=== PATIENT | male | born 1965 | race Caucasian/White ===

== ENCOUNTER 2021-05-12 18:48 | Inpatient (IN) | payer OTHER ==
[~2021-05-12] VITALS: Ht 182.9 cm; Wt 147.8 kg
[2021-05-12] MEDS ORDERED: fentaNYL 100 MCG/2 ML INJECTION (J3010) IV ONE ×2 (19:10→20:30)
[2021-05-12] MEDS ORDERED: BOOSTRIX/ADACEL VACCINE (DIPHTH/PERTUSS/ACELL/TETANUS) 0.5ML SYR IM ONE (19:10)
[2021-05-12] MEDS ORDERED: ceFAZolin SOD 2 GM in IV 1 EA IV ONE (19:10)
[2021-05-12 19:33] LABS: BASO # 0.1 10^3/uL (0.0-0.2); BASO % 0.5 % (0.0-1.0); EOS # 0.3 10^3/uL (0.0-0.5); EOS % 2.4 % (0.0-3.0); HEMATOCRIT 45.2 % (42.0-52.0); HEMOGLOBIN 15.6 g/dl (13.5-17.5); LYMPH # 2.6 10^3/uL (1.5-5.0); MEAN CORPUSCULAR HGB CONC 34.5 g/dl (32.0-36.5); MEAN CORPUSCULAR VOLUME 89.7 fl (80.0-96.0); MONO # 1.1 10^3/uL (0.0-0.8); MONO % 9.3 % (2.0-8.0); NEUTROPHILS # 7.6 10^3/uL (1.5-8.5); NEUTROPHILS % 65.4 % (36.0-66.0); PLATELET COUNT, AUTOMATED 265 10^3/uL (150-450); RED BLOOD COUNT 5.04 10^6/uL (4.30-6.10); WHITE BLOOD COUNT 11.6 10^3/uL (4.0-10.0)
[2021-05-12 19:55] LABS: BLOOD UREA NITROGEN 23 MG/DL (7-18); CALCIUM LEVEL 9.3 MG/DL (8.5-10.1); CARBON DIOXIDE LEVEL 27 MEQ/L (21-32); CHLORIDE LEVEL 107 MEQ/L (98-107); CREATININE FOR GFR 1.49 MG/DL (0.70-1.30); GLOMERULAR FILTRATION RATE 51.8 (>56); GLUCOSE, FASTING 167 MG/DL (70-100); POTASSIUM SERUM 4.3 MEQ/L (3.5-5.1); SODIUM LEVEL 141 MEQ/L (136-145)
[2021-05-12] MEDS: BUDESONIDE 180MCG INHALER (PULMICORT FLEXHALER) INH SCH (20:00)
[2021-05-12 20:08] LABS: RSV AMPLIFICATION NEGATIVE (NEGATIVE)
--- NOTE | 2021-05-12 20:24 | REP ---
INDICATION: trauma COMPARISON: None. TECHNIQUE: Two views of the left elbow FINDINGS: Evaluation is limited by positioning. Subtle injury cannot be excluded. IMPRESSION: Limited examination. Subtle injury cannot be excluded. <Electronically signed by Vic Calzada > 05/12/212020
--- NOTE | 2021-05-12 20:24 | REP ---
INDICATION: trauma COMPARISON: None. TECHNIQUE: AP and lateral views of the left forearm FINDINGS: Transverse posteriorly angulated fractures through the distal radial and ulnar metadiaphysis noted. IMPRESSION: Transverse angulated fractures through the distal radial and ulnar metadiaphysis. <Electronically signed by Vic Calzada > 05/12/212020
[2021-05-12] MEDS ORDERED: ceFAZolin SOD 1 GM in D5W MINI-BAG PLUS 50 ML IV ONE ×2 (20:25→20:40)
--- NOTE | 2021-05-12 20:25 | REP ---
INDICATION: trauma COMPARISON: None. TECHNIQUE: Single lateral view of the wrist FINDINGS: Posteriorly angulated transverse fractures through the distal radial and ulnar metaphyses with overlying soft tissue swelling noted. IMPRESSION: Posteriorly angulated fractures through the distal radial and ulnar metaphyses. <Electronically signed by Vic Calzada > 05/12/212020
[2021-05-12] MEDS ORDERED: DULO1CAP6 PO (20:53)
[2021-05-12] MEDS ORDERED: ROPI1TAB3 PO (20:53)
[2021-05-12] MEDS ORDERED: BISO5TAB14 PO (20:53)
[2021-05-12] MEDS ORDERED: VITMTA PO (20:53)
[2021-05-12] MEDS ORDERED: LISI20TA33 PO (20:53)
[2021-05-12] MEDS ORDERED: CALC1TAB63 PO (20:53)
[2021-05-12] MEDS ORDERED: ATOR80TA59 PO (20:53)
[2021-05-12] MEDS ORDERED: TOPI200T7 PO (20:53)
[2021-05-12] MEDS ORDERED: PROAAER10 INH (20:53)
[2021-05-12] MEDS ORDERED: QVAR80AE8 INH (20:53)
[2021-05-12] MEDS ORDERED: OMEP-221 PO (20:53)
[2021-05-12] MEDS ORDERED: LORA-674 PO (20:53)
[2021-05-12] MEDS ORDERED: MELO15TA28 PO (20:53)
[2021-05-12] MEDS ORDERED: METF-839 PO (20:53)
[2021-05-12] MEDS ORDERED: HOME MED LIST COMPLETE! XX SCH (20:55)
[2021-05-12] MEDS ORDERED: DULoxetine 30MG CAPSULE (CYMBALTA) PO SCH (21:00)
[2021-05-12] MEDS ORDERED: rOPINIRole 1MG TAB PO SCH (21:00)
[2021-05-12] MEDS ORDERED: D5W/0.9% SODIUM CHLORIDE 1,000 ML IV SCH (21:30)
[2021-05-12] MEDS ORDERED: MAALOX 30 ML SUSP *UDC PO PRN (21:30)
[2021-05-12] MEDS ORDERED: MOM 30ML SUSPENSION UDC PO PRN (21:30)
[2021-05-12] MEDS ORDERED: GLUCOSE 4GM CHEW TABLET PO PRN (21:30)
[2021-05-12] MEDS ORDERED: DEXTROSE 50% 50 ML SYRINGE IV PRN (21:30)
[2021-05-12] MEDS ORDERED: ALBUTEROL 90 MCG/ACT 8GM HFA INHALER INH PRN (21:30)
[2021-05-12] MEDS ORDERED: ACETAMINOPHEN TAB 650MG DOSE (2X325MG) PO PRN (21:30)
[2021-05-12] MEDS ORDERED: GLUCAGON INJ 1MG VIAL SC PRN (21:30)
[2021-05-12] MEDS ORDERED: MORPHINE 2 MG/ML 1ML VIAL (J2270) IV PRN (21:30)
--- NOTE | 2021-05-12 21:32 | HPEPDOC ---
[facility] Medical History & Physical Date of Admission May 12, 2021 Date of Service: May 12, 2021 Attending Physician: ALICE CUENCA MD History and Physical TIME OF SERVICE: 0945PM CHIEF COMPLAINT: fall HISTORY OF PRESENT ILLNESS: While standing on a ladder, a 55 yr old M,fell down 3 feet off a ladder and landed on his left arm and developed 10/10 in severity sharp left arm pain. When EMS arrived the noted that his left wrist was deformed so they placed a splint gave him morphine and Zofran. Kerlix with moistened gaze was applied to the laceration at his left elbow. At the time of my assessment he continued to have pain and nausea. REVIEW OF SYSTEMS: 10 point ROS neg except as listed in HPI PAST MEDICAL /SURGICAL HISTORY: Essential HTN, COPD, DLP, NIDDM, RLS, GERD, knee surgery, hernia surgery, repair of deviated nasal septum, surgery to manage a hydrocele SOCIAL HISTORY: He doesn't smoke, he rarely drinks and denies using recreational drugs FAMILY HISTORY: DM, liver disease ALLERGIES: Please see below. HOME MEDICATIONS: Please see below. PHYSICAL EXAMINATION: Vital Signs Date Time Temp Pulse Resp B/P (MAP) Pulse Ox O2 Delivery O2 Flow Rate FiO2 05/12/21 18:56 96.4 76 20 95 Room Air 05/12/21 19:15 117/65 (82) GENERAL APPEARANCE: well-nourished and developed/ NAD HEENT: EOMI / MMM&P CARDIOVASCULAR: RRR/NMRG LUNGS: CTAB on RA ABDOMEN: contour convex MUSCULOSKELETAL: NCAT / his left wrist is wrapped in a splint INTEGUMENT: he has a large laceration with a moderate amount of blood at the left elbow that is open (dressings have been disloged) NEUROLOGICAL: CN 2-12 grossly intact / speech not dysarthric PSYCHIATRIC: A&O x 3 / able to understand and follow all commands LABORATORY DATA: IMAGING: Xray elbow IMPRESSION: Limited examination. Subtle injury cannot be excluded. Xray radius/ulna IMPRESSION: Transverse angulated fractures through the distal radial and ulnar metadiaphysis. Xray wrist IMPRESSION: Posteriorly angulated fractures through the distal radial and ulnar metaphyses. MICROBIOLOGY: Negative respiratory panel ASSESSMENT: is a 55 yr old w a hx of HTN, COPD, DLP, NIDDM, RLS & GERD who is admitted for surgical management of left distal radial and ulnar metaphyses fractures. PLAN: 1 Left distal radial and ulnar metaphyses fractures. 2/2 mechanical fall Plan: admit to medical floor after surgery to be performed by / NPO w D5NS / morphine with Zofran 2 CLARE vs CKD3 Plan: IVF / f/u renal US, Uprotein, Phosphorus and PTH / hold lisinopril & meloxicam 3 Essential HTN Plan: hold lisinopril / start hydralazine PRN 4 COPD Plan: albuterol, budesonide inhaler (we don't have beclomethasone inhaler on formulary) 5 DLP Plan: statin 6 NIDDM Plan: f/u FSBS Q6H while NPO / f/u A1C / SSI w hypoglycemia protocol / hold metformin 7 RLS Plan: ropinirole 8 GERD Plan: omeprazole 9 Class 3 obesity -complicates care DVT Px: SCDs Dispo: home after at least 2 midnight's stay Home Medications Scheduled Atorvastatin Calcium (Atorvastatin Calcium) 80 Mg Tablet, 40 MG PO QHS Beclomethasone Dipropionate (Qvar Redihaler) 80 Mcg/Act Hfa.aeroba, 2 PUFFS INH BID Bisoprolol Fumarate (Bisoprolol Fumarate) 5 Mg Tablet, 5 MG PO BID Calcium Carbonate/Vitamin D3 (Calcium 600-Vit D3 400 Tablet) 1 Each Tablet, 1 TAB PO DAILY Duloxetine Hcl (Duloxetine HCl) 60 Mg Capsule.dr, 60 MG PO QHS Lisinopril (Lisinopril) 20 Mg Tablet, 10 MG PO DAILY Loratadine (Loratadine) 10 Mg Tablet, 10 MG PO DAILY Meloxicam (Meloxicam) 15 Mg Tablet, 15 MG PO DAILY Metformin HCl (Metformin HCl) 500 Mg Tablet, 500 MG PO BIDPC Multivitamins (Thera M Plus Tablet) 1 Each Tablet, 1 TAB PO DAILY Omeprazole (Omeprazole) 40 Mg Capsule.dr, 40 MG PO BID Ropinirole HCl (Ropinirole HCl) 1 Mg Tablet, 1 MG PO QHS Topiramate (Topiramate) 200 Mg Tablet, 100 MG PO BID Scheduled PRN Albuterol Sulfate (Proair Hfa) 8.5 Gm Hfa.aer.ad, 2 PUFF INH Q6H PRN for SHORTNESS OF BREATH Allergies Coded Allergies: No Known Allergies (Unverified , 05/12/21) A-FIB/CHADSVASC A-FIB History Current/History of A-Fib/PAF?: No Current PO Anticoag Therapy: No ALICE CUENCA MD May 12, 2021 21:32
[2021-05-12] MEDS ORDERED: ceFAZolin 1GM VIAL (J0690 PER 500MG) As Ordered ONE ×2 (21:46→22:57)
[2021-05-12 21:49] LABS: ETHYL ALCOHOL (ETHANOL) < 0.003 % (0.000-0.010); PHOSPHORUS LEVEL 3.9 MG/DL (2.5-4.9)
[2021-05-12] MEDS ORDERED: BUPIVACAINE/EPIN 0.25% 30 ML VIAL As Ordered ONE (21:56)
[2021-05-12 21:58] LABS: PTH INTACT 33.9 PG/ML (18.5-88.0)
[2021-05-12 22:03] LABS: HEMOGLOBIN A1c 7.6 %
[2021-05-12] MEDS ORDERED: propofoL 200 MG/20 ML VIAL As Ordered ONE (22:30)
[2021-05-12] MEDS ORDERED: ROCURONIUM BROMIDE 50 MG/5 ML VIAL As Ordered ONE (22:30)
[2021-05-12] MEDS ORDERED: LIDOCAINE 2% 100MG/5ML SDV (FOR ANES.) As Ordered ONE (22:30)
[2021-05-12] MEDS ORDERED: MIDAZOLAM INJ 2MG/2ML VIAL (J2250 PER 1MG) As Ordered ONE (22:31)
[2021-05-12] MEDS ORDERED: fentaNYL 250 MCG/5 ML INJECTION (J3010) As Ordered ONE (22:31)
[2021-05-12] MEDS ORDERED: ONDANSETRON 4MG/2ML VIAL IV PRN (22:50)
[2021-05-12] MEDS ORDERED: dexameTHASONE 4 MG/ML 1ML VIAL (J1100 PER 1MG) As Ordered ONE (22:58)
[2021-05-12] MEDS ORDERED: ONDANSETRON 4MG/2ML VIAL As Ordered ONE (22:58)
[2021-05-12] MEDS ORDERED: hydrALAZINE 20MG/ML 1ML VIAL (J0360 PER 20MG) IV PRN (23:00)
[2021-05-12] MEDS ORDERED: ACETAMINOPHEN 1000MG 100ML IV BTL (OFIRMEV) (J0131 PER 10MG) As Ordered ONE (23:19)
[2021-05-12] MEDS ORDERED: METOCLOPRAMIDE INJ 10MG/2ML VIAL (J2765 PER 1) As Ordered ONE (23:20)
[2021-05-12] MEDS ORDERED: KETOROLAC 60MG 2ML VIAL As Ordered ONE (23:20)
[2021-05-13] VITALS (8 sets, daily range): BP systolic 129–176; BP diastolic 74–110
[2021-05-13] MEDS ORDERED: SUGAMMADEX SODIUM 500 MG/5 ML VIAL (BRIDION) As Ordered ONE (00:37)
--- NOTE | 2021-05-13 01:06 | ROOPDOC ---
[facility] Report Of Operation Report of Operation DATE OF PROCEDURE: 05/13/21 PREPROCEDURE DIAGNOSES: Left open wrist fracture and left elbow laceration. POSTPROCEDURE DIAGNOSES: Left open wrist fracture and left elbow laceration and left proximal humerus fracture. PROCEDURE PERFORMED: Left wrist irrigation debridement open reduction internal fixation distal radius and irrigation debridement and closure left elbow laceration none sling management without reduction left proximal humerus fracture. SURGEON: Dr. Edinson Bravo MD GEOSPATIAL INFORMATION SCIENTIST: ANESTHESIA: General anesthesia Dr. Foss. ESTIMATED BLOOD LOSS: Approximately 75 mL. COMPLICATIONS: None. REMARKS: None. FINDINGS: I took Intra-Op radiographs of the shoulder given that he was complaining about severe shoulder pain. This shows a metadiaphyseal nondisplaced nonangulated nonshortened proximal humerus fracture with some mild comminution. SPECIMENS REMOVED: None PROCEDURE NOTE: This 55-year-old man fell off a stepstool 5 PM on 05/12/2021. He had an open wrist fracture on the left side as well as large elbow laceration. We discussed the pros and cons risks and benefits of nonoperative management versus surgical fixation and irrigation debridement and closure. He wished to proceed had no further questions. DESCRIPTION OF PROCEDURE: Patient was brought to the operating room theater. He was placed supine on the operating table. An additional 1 g of Ancef IV was administered prior to the start of the case he had received 2 g IV in the emergency department he is over 120 kg. General anesthesia was induced and hand table used the patient's left side. Bed turned 90 degrees. Intraoperative xrays taken left shoulder demonstrates a nondisplaced proximal humerus fracture in the metaphyseal region. Repeat radiographs of the left elbow are also obtained no obvious fracture there. Left upper extremity prepped and draped with iodine- based prep solution allowing over 3 minutes drying time prior to draping. Used a 24 inch tourniquet applied to left upper extremity appropriately padded all bony prominences appropriately padded. Preoperative timeout performed to confirm the site patient and surgery. I began by using 3 L normal saline gravity irrigation thoroughly irrigate both the small poke hole on the ulnar side of the wrist as well as a large laceration transversely at the left elbow. Exam the triceps. Intact. No other associated injuries. Closed left elbow laceration with 2-0 Vicryl interrupted fashion as well as skin with matt. Next I turned my attention to the wrist fracture. I exsanguinated the limb inflated the tourniquet to 250 mmHg. Made a volarly based incision over the FCR tendon just proximal to the wrist crease. Carried dissection down through skin and subcutaneous tissue achieve meticulous hemostasis. I incised the tendon sheath of the FCR tendon and then the subsheath retracted this as well as the FPL muscle belly. Made an incision in pronator quadratus retracted this. Fracture was quite displaced dorsally. I used longitudinal traction and direct manipulation as well as keying back in the fracture I achieved preliminary reduction. I used a [employer]ynthes. Variable angle precontoured volar distal radius plate with 3 holes. Position the plate appropriately using intraoperative fluoroscopy. Used the 2.7 mm fully threaded cortical screw in the oblong hole to position my plate as well as a temporary wire fixation. Took radiographs, this was appropriately out to length appropriate alignment with plate a ppropriately placed. I then fixated the plate to bone followed by one cortical screw distally followed by 3 more fully threaded locking screws in the distal most holes ensuring to stay out of the joint on both AP lateral radiographs as well as 30 degrees flexion true joint view on the lateral x-ray. I then filled the other 2 proximal screw holes with fully threaded cortical screws. Screws proximally were 20mm long and the distal screws were 20-24mm. I removed the temporary guidewire fixation. I took final radiographs saved these onto the system. Fracture out to length. Moderate comminution especially in the metaphyseal area. Fracture fixation was stable. Ulna was well aligned so elected to simply fix the radius fracture. I closed the subcutaneous tissue with 2-0 Vicryl sutures. Tourniquet was let down prior to closure to ensure hemostasis. Strong radial pulse after the surgery. Skin was cleaned with wet and dry dressing followed by closure with matt. Adaptic as well as gauze abdominal pad dressings and sterile cast padding was used with a volar plaster Edita splint for the immobilization of the wrist overwrapped with sterile 4 inch Andrea bandage and the elbow in a similar fashion with sterile 6 inch Andrea bandage wrapped over top and a sling for the upper extremity to help immobilize the proximal humerus fracture. Patient was woken up from general anesthetic transferred off the operating room table and taken to postanesthetic care unit in stable condition. All sponge needle instrument counts were correct. No complications. Plan to the patient management over admitted overnight hospitalist service. Ancef 2 g IV x2 doses postoperatively. Discharge home tomorrow as long as they are stable nonweightbearing left upper extremity gentle range of motion the elbow sling for left upper extremity humerus fracture, start pendulum exercises elbow exercises and finger exercises no lifting. Follow-up in the office in 2 weeks time. Change elbow dressing post op day 1,2 and PRN. DC matt POD 14. Postoperative wound instructions were given. It was recommended to keep the wound clean and dry. Dressing changes as needed. It was reinforced with the patient that they should call us or be seen immediately for redness, drainage, or fever. I phoned the patient's brother [place] after surgery as requested. EDINSON BRAVO MD May 13, 2021 01:06
[2021-05-13] MEDS: fentaNYL 100 MCG/2 ML INJECTION (J3010) IV PRN ×2 (01:11→01:16)
[2021-05-13] MEDS ORDERED: ONDANSETRON 4MG/2ML VIAL IV PRN ×2 (01:20→01:30)
[2021-05-13] MEDS ORDERED: PERCOCET 5MG/325MG TAB PO PRN ×2 (01:20→01:25)
[2021-05-13] MEDS ORDERED: LR 1,000 ML IV SCH ×2 (01:20→01:25)
[2021-05-13] MEDS ORDERED: METOCLOPRAMIDE INJ 10MG/2ML VIAL (J2765 PER 1) IV PRN (01:20)
[2021-05-13] MEDS ORDERED: MORPHINE 2 MG/ML 1ML VIAL (J2270) IV PRN (01:25)
[2021-05-13] MEDS ORDERED: ACETAMINOPHEN TAB 650MG DOSE (2X325MG) PO PRN (01:25)
[2021-05-13] MEDS: bisoproloL fumarate 5 MG TAB PO SCH ×2 (02:50→09:00)
[2021-05-13] MEDS: TOPIRAMATE (TopAMAX) 100 MG TAB PO SCH ×2 (02:51→09:01)
[2021-05-13] MEDS: ceFAZolin SOD 1 GM in D5W MINI-BAG PLUS 50 ML IV SCH ×4 (02:52→11:36)
[2021-05-13] MEDS ORDERED: **hydrALAZINE** 10 MG TAB PO PRN (03:35)
[2021-05-13 07:15] LABS: HEMATOCRIT 40.1 % (42.0-52.0); MEAN CORPUSCULAR HGB CONC 33.7 g/dl (32.0-36.5); PLATELET COUNT, AUTOMATED 227 10^3/uL (150-450); RED BLOOD COUNT 4.36 10^6/uL (4.30-6.10); WHITE BLOOD COUNT 10.9 10^3/uL (4.0-10.0)
[2021-05-13 07:21] LABS: HEMOGLOBIN 13.5 g/dl (13.5-17.5)
[2021-05-13 07:30] LABS: CALCIUM LEVEL 8.5 MG/DL (8.5-10.1); CREATININE FOR GFR 1.4 MG/DL (0.70-1.30); GLOMERULAR FILTRATION RATE 55.6 (>56); POTASSIUM SERUM 4.2 MEQ/L (3.5-5.1)
[2021-05-13 07:34] LABS: INR 1.11; PARTIAL THROMBOPLASTIN TIME 32.2 SECONDS (25.9-37.0); PROTHROMBIN TIME 14.7 SECONDS (12.7-14.5)
[2021-05-13] MEDS: HumaLOG INSULIN (NovoLOG) PER UNIT SC SCH ×2 (08:56→12:22)
[2021-05-13] MEDS ORDERED: MELOXICAM (MOBIC) 7.5 MG TAB PO SCH (09:00)
[2021-05-13] MEDS ORDERED: FLUBLOK(EGG FREE)(QUAD)INFLUENZA VACC 0.5ML SYRINGE 18YRS & OLDER IM ONE (09:00)
[2021-05-13] MEDS ORDERED: OMEPRAZOLE 20 MG CAP PO SCH (09:00)
--- NOTE | 2021-05-13 09:47 | HPE ---
HISTORY AND PHYSICAL DATE OF ADMISSION: 05/12/2021 CHIEF COMPLAINT: Left open wrist fracture and left elbow laceration. HISTORY OF PRESENT ILLNESS: This 55-year-old man fell off a step stool today at 5 p.m. He was at his brother's place, not a work-related injury. He fell down onto his left upper extremity. He was found to have an open fracture and left elbow laceration by the emergency department physician, Dr. Villarreal. He last dated 1 p.m. He does have a prior history of a wrist fracture as a 10 -year-old child, no other pain or problems with the upper extremity prior to this. He is right-hand dominant. There was no loss of consciousness, chest pain or other injury. PAST MEDICAL HISTORY: LIONEL. He states no other past medical history. MEDICATIONS: He is unsure what he is on. However, medication database includes albuterol, atorvastatin, beclomethasone, bisoprolol, calcium carbonate, duloxetine, lisinopril, loratadine, meloxicam, metformin, multivitamins, omeprazole, ropinirole, topiramate. ALLERGIES: No known drug allergies. PAST SURGICAL HISTORY: A hernia repair and a deviated septum. SOCIAL HISTORY: He is retired. He was in the for 20 years. He is a nonsmoker. He lives in [place]. PHYSICAL EXAMINATION: A 55-year-old man who has an obvious deformity, left upper extremity. He is in mild distress. He looks uncomfortable but responded to questions appropriately. His vital signs are stable. He has a large transverse laceration above the olecranon. This measures about 3-4 inches. This is down to bone. The triceps appears intact. He is able to slightly flex and extend at the elbow. In terms of his wrist, there is a small grade 1 poke hole type laceration on the ulnar side of the wrist. No other open obvious injuries. There is moderate swelling. There is a slight dinner fork deformity. Forearm compartments and hand compartments are soft. He is able to wiggle his fingers, flex and extend the thumb. The hand is warm and well perfused. Strong radial pulse. Normal sensation, motor function in median, radial, ulnar nerves as well as AIN/PIN. IMAGING STUDIES: Radiographs reviewed. Left elbow, limited examination, subtle injury cannot be excluded. Radiographs obtained of the radius and ulna, transverse angulated fractures through the distal radius and ulnar metadiaphysis. Single view of the wrist laterally demonstrates posterior angulated fractures through the distal radial and ulnar metaphysis. LABORATORY DATA: Hemoglobin 15.6. COVID is negative. ASSESSMENT AND PLAN: This 55-year-old man has an open left wrist fracture as well as transverse laceration at the elbow, no obvious fractures. Recommend acute irrigation and debridement, open reduction and internal fixation of the wrist fracture as well as irrigation, debridement and closure of the laceration, left elbow, examination under anesthetic as well. We discussed the pros, cons, risks, benefits and nonsurgical versus surgical intervention for these problems. He wished to go ahead with the surgery. Risks of nonsurgical and surgical management were discussed. Risks of surgery include but are not limited to infection, pain, stiffness, weakness, damage to surrounding structures, neurovascular injury, delayed mal or nonunion, anesthetic complications, osteoarthritis, failure of the plate, hardware irritation, other hardware-related complications, anesthetic complications, blood clots, , need for further surgery or other procedures as well as other risks not listed. He wished to go ahead, signed the consent form for surgery as well as the possible need for blood products and I explained the pros, cons, risks and benefits of that which include but are not limited to fever, allergic reaction, transmission of bacteria or viruses. I marked the left upper extremity, wet gauze on the wrist and elbow. The patient had already received intravenous Ancef, tetanus. The OR, I have let them know and they are solutions developer to the patient. I also informed the hospitalist and asked him to assess and admit the patient for medical management. The patient understands and had no further questions. ALEAH
[2021-05-13] MEDS: BUDESONIDE 180MCG INHALER (PULMICORT FLEXHALER) INH SCH (09:49)
--- NOTE | 2021-05-13 11:02 | REP ---
INDICATION: lorenzo COMPARISON: None TECHNIQUE: Real time mehta scale ultrasound examination using curved array transducer. FINDINGS: Bilateral kidneys are normal in contour, size, echogenicity, and reniform shape increased central sinus fat consistent with medical renal disease. No hydronephrosis, nephrolithiasis, cystic or renal mass lesion. Right kidney measures 11.9 x 6.7 x 6.2 cm. Left kidney measures 11.7 x 5.7 x 7.3 cm. IMPRESSION: 1. No evidence for hydronephrosis. <Electronically signed by Vic Calzada > 05/13/21 [id number]
--- NOTE | 2021-05-13 12:01 | IPN ---
PROGRESS NOTE DATE: 05/13/2021 CHIEF COMPLAINT: Postoperative day #1, left wrist irrigation and debridement, open reduction internal fixation, sling management, left proximal humerus fracture and irrigation and debridement closure, left elbow laceration. HISTORY OF PRESENT ILLNESS: This 55-year-old man fell off a step stool yesterday. Performed emergency surgery. He is doing well. No complaints or concerns from the patient or nursing staff. He is doing well. Pain settling down. PHYSICAL EXAMINATION: GENERAL: A well appearing 55-year-old man, no acute distress. He is in good spirits. EXTREMITIES: Normal sensation in the hand. The upper extremity is sore. He is moving all his fingers. Normal sensation to the median, radial, ulnar, anterior interosseous nerve (AIN) and proximal interosseous nerve (PIN). Good motor function to all. Fingers are warm and well perfused. Dressing in situ. Some mild swelling to the left proximal humerus. He is in a sling. Bandages in situ. ASSESSMENT AND PLAN: This is a 55-year-old man who is in good neurologic status after surgery. Asked him to follow up in 1-2 weeks. He is safe to discharge home from an orthopedic perspective. I have given him followup instructions as well as range of motion of the fingers as well as elbow, but pendulums only, no lifting of the shoulder or at the hand and wrist. He understands and has no further questions.
[2021-05-13] MEDS ORDERED: PERCOCET PO (12:50)
[2021-05-13] MEDS ORDERED: HumaLOG INSULIN (NovoLOG) PER UNIT SC SCH ×2 (21:00)
--- NOTE | 2021-05-13 21:31 | DS.PDOC ---
Discharge Summary General Date of Admission May 12, 2021 at 21:27 Date of Discharge 05/13/21 Discharge Summary PROCEDURES PERFORMED DURING STAY: Left wrist irrigation debridement open reduction internal fixation distal radius and irrigation debridement and closure left elbow laceration, Elbow sling management without reduction left proximal humerus fracture. DISCHARGE DIAGNOSES: Left distal radius and Ulnar metaphysial fracture Left nondisplaced minimally comminuted proximal Humerus fracture Laceration of Left elbow SECONDARY DIAGNOSIS: HTN, COPD, dyslipidemia, NIDDM, RLS, GERD, Morbid obesity with BMI of 44. COMPLICATIONS/CHIEF COMPLAINT: Open Fracture Of Radius And Ulna. HOSPITAL COURSE: is a 55 yr old w a hx of HTN, COPD, DLP, NIDDM, RLS & GERD who is admitted for surgical management of left distal radial and ulnar metaphyses fractures. Left distal radius and ulnar metaphyses fractures. 2/2 mechanical fall s/p ORIF pain control with oxycodone nonweightbearing left upper extremity gentle range of motion the elbow sling for left upper extremity humerus fracture, start pendulum exercises elbow exercises and finger exercises no lifting. Follow-up in the office in 2 weeks time. Change elbow dressing post op day 1,2 and PRN. DC matt POD 14. Postoperative wound instructions were given. It was recommended to keep the wound clean and dry. Dressing changes as needed. It was reinforced with the patient that they should call us or be seen immediately for redness, drainage, or fever. Left proximal Humerus nondisplaced fracture with Left elbow laceration No surgical fixation sling CLARE vs CKD3 Most likely this is CKD stage 3 as no change in creatinine with IV hydration. creatinine at 1.4 follow up with PMD Essential HTN continue home meds COPD continue Home inhalers DLP statin NIDDM continue metformin RLS ropinirole GERD omeprazole Class 3 obesity complicates care DISCHARGE MEDICATIONS: Please see below. ALLERGIES: Please see below. PHYSICAL EXAMINATION ON DISCHARGE: VITAL SIGNS: Please see below. GENERAL: well-nourished and developed/ NAD, awake , alert, laying in bed in no distress HEENT: normocephalic, atraumatic, moist mucous membranes, anicteric eyes. CARDIOVASCULAR: RRR, No rub or murmur or gallop LUNGS: bilateral vesicular breath sounds, no ronchi or wheezing. ABDOMEN: contour convex, soft, nontender, bowel sounds present. MUSCULOSKELETAL: left wrist and left elbow in surgical bandage. NEUROLOGICAL: CN 2-12 grossly intact / speech not dysarthric PSYCHIATRIC: A&O x 3 / able to understand and follow all commands LABORATORY DATA: Please see below. ACTIVITY: [As tolerated]. DIET: Carb consistent DISPOSITION: 01 Home, Self-Care. DISCHARGE INSTRUCTIONS: [facility] ortho in 2 weeks PMD in 4 weeks DISCHARGE CONDITION: [Stable]. TIME SPENT ON DISCHARGE: 35 minutes. Vital Signs/I&Os Vital Signs Date Time Temp Pulse Resp B/P (MAP) Pulse Ox O2 Delivery O2 Flow Rate FiO2 05/13/21 12:06 18 05/13/21 10:00 97.0 97 129/74 (92) 94 Room Air 05/13/21 06:54 2.0 I&O- Last 24 Hours up to 6 AM 05/13/21 07:00 Intake Total 2480 ml Output Total 525 ml Balance 1955 ml Laboratory Data Labs 24H Laboratory Tests 2 05/13/21 01:18: Bedside Glucose (Misc Panel) 189H 05/13/21 06:59: Prothrombin Time 14.7H, Prothromb Time International Ratio 1.11, Activated Partial Thromboplast Time 32.2 05/13/21 07:00: Nucleated Red Blood Cells % (auto) 0.0, Anion Gap 6L, Glomerular Filtration Rate 55.6L, Calcium Level 8.5 05/13/21 11:30: Bedside Glucose (Misc Panel) 195H CBC/BMP Laboratory Tests 05/13/21 07:00 FSBS Laboratory Tests Test 05/13/21 01:18 05/13/21 11:30 Range/Units Bedside Glucose (Misc Panel) 189 195 70-105 MG/DL Discharge Medications Scheduled Atorvastatin Calcium (Atorvastatin Calcium) 80 Mg Tablet, 40 MG PO QHS, (Reported) Beclomethasone Dipropionate (Qvar Redihaler) 80 Mcg/Act Hfa.aeroba, 2 PUFFS INH BID, (Reported) Bisoprolol Fumarate (Bisoprolol Fumarate) 5 Mg Tablet, 5 MG PO BID, (Reported) Calcium Carbonate/Vitamin D3 (Calcium 600-Vit D3 400 Tablet) 1 Each Tablet, 1 TAB PO DAILY, (Reported) Duloxetine Hcl (Duloxetine HCl) 60 Mg Capsule.dr, 60 MG PO QHS, (Reported) Lisinopril (Lisinopril) 20 Mg Tablet, 10 MG PO DAILY, (Reported) Loratadine (Loratadine) 10 Mg Tablet, 10 MG PO DAILY, (Reported) Meloxicam (Meloxicam) 15 Mg Tablet, 15 MG PO DAILY, (Reported) Metformin HCl (Metformin HCl) 500 Mg Tablet, 500 MG PO BIDPC, (Reported) Multivitamins (Thera M Plus Tablet) 1 Each Tablet, 1 TAB PO DAILY, (Reported) Omeprazole (Omeprazole) 40 Mg Capsule.dr, 40 MG PO BID, (Reported) Ropinirole HCl (Ropinirole HCl) 1 Mg Tablet, 1 MG PO QHS, (Reported) Topiramate (Topiramate) 200 Mg Tablet, 100 MG PO BID, (Reported) Scheduled PRN Albuterol Sulfate (Proair Hfa) 8.5 Gm Hfa.aer.ad, 2 PUFF INH Q6H PRN for SHORTNESS OF BREATH, (Reported) Oxycodone/Acetaminophen (Oxycodone-Acetaminophen 5-325) 1 Each Tablet, 1 TAB PO Q6HP PRN for PAIN LEVEL 6-10 Allergies Coded Allergies: No Known Allergies (Unverified , 05/12/21) Beatriz Daniel MD May 13, 2021 21:31
== END 2021-05-13 14:00 | disposition home or self-care (01) | DRG 511 ==
LOC: EDBD 18:48 → M ED 18:48 → M ED INP 21:27 → ENRESERV 05-13 01:11 → M MS5PR 05-13 02:18
PROVIDERS: ADMIT Internal Medicine; ATTEND Internal Medicine Nephrology
PROC: 0PSJ04Z Reposition Left Radius with Internal Fixation Device, Open Approach (ICD-10-PCS; principal; 2021-05-13)
PROC: 0HQEXZZ Repair Left Lower Arm Skin, External Approach (ICD-10-PCS; 2021-05-13)
DX: S52.322B Displaced transverse fracture of shaft of left radius, initial encounter for open fracture type I or II (principal); S42.292A Other displaced fracture of upper end of left humerus, initial encounter for closed fracture; Z68.41 Body mass index [BMI] 40.0-44.9, adult; S52.222A Displaced transverse fracture of shaft of left ulna, initial encounter for closed fracture; S51.012A Laceration without foreign body of left elbow, initial encounter; W11.XXXA Fall on and from ladder, initial encounter; I12.9 Hypertensive chronic kidney disease with stage 1 through stage 4 chronic kidney disease, or unspecified chronic kidney disease; J44.9 Chronic obstructive pulmonary disease, unspecified; E78.5 Hyperlipidemia, unspecified; E11.22 Type 2 diabetes mellitus with diabetic chronic kidney disease; G25.81 Restless legs syndrome; K21.9 Gastro-esophageal reflux disease without esophagitis; N18.30 Chronic kidney disease, stage 3 unspecified; E66.9 Obesity, unspecified; Z79.84 Long term (current) use of oral hypoglycemic drugs; Z79.1 Long term (current) use of non-steroidal anti-inflammatories (NSAID); Z79.899 Other long term (current) drug therapy; Y92.009 Unspecified place in unspecified non-institutional (private) residence as the place of occurrence of the external cause; Y99.8 Other external cause status; Y93.89 Activity, other specified; E66.01 Morbid (severe) obesity due to excess calories

== ENCOUNTER → 2021-05-19 | Outpatient (CLI) | payer OTHER ==
[~2021-05-19] MED LIST: ATOR80TA59 PO; BISO5TAB14 PO; CALC1TAB63 PO; DULO1CAP6 PO; LISI20TA33 PO; LORA-674 PO; MELO15TA28 PO; METF-839 PO; OMEP-221 PO; PERCOCET PO; PROAAER10 INH; QVAR80AE8 INH; ROPI1TAB3 PO; TOPI200T7 PO; VITMTA PO
--- NOTE | 2021-05-19 16:40 | REP ---
INDICATION: FX UPPER END RT HUMERUS, SURGICAL PLANNING. COMPARISON: None. TECHNIQUE: Helical technique using 3 x 3 mm increments and reconstructed in both sagittal and coronal planes FINDINGS: There is a comminuted proximal humeral diaphyseal fracture including the surgical neck with anterior displacement. The glenohumeral relationship is maintained. 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 The acromioclavicular joint is maintained. 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 <Electronically signed by Mikhail Kaufman > 05/19/21 [id number]
== END ==
LOC: M RAD 16:13
PROVIDERS: ATTEND Orthopaedic Surgery Sports Medicine
DX: S42.201D Unspecified fracture of upper end of right humerus, subsequent encounter for fracture with routine healing (principal); W18.30XD Fall on same level, unspecified, subsequent encounter; Y92.009 Unspecified place in unspecified non-institutional (private) residence as the place of occurrence of the external cause

== ENCOUNTER → 2021-05-19 | Outpatient (CLI) | payer OTHER ==
--- NOTE | 2021-05-19 11:45 | REP ---
INDICATION: UNSP FX UPPER END OF R HUMERUS. COMPARISON: None. TECHNIQUE: Neutral and Y-view of the left shoulder. FINDINGS: There is a comminuted displaced fracture of the proximal humeral metaphysis. Clavicle, acromioclavicular joint, and scapula appear intact. IMPRESSION: Comminuted displaced proximal humeral metaphyseal fracture. <Electronically signed by Vic Calzada > 05/19/21 [id number]
--- NOTE | 2021-05-19 11:46 | REP ---
INDICATION: UNSP FX UPPER END OF R HUMERUS COMPARISON: None. TECHNIQUE: Two views of the left clavicle FINDINGS: Clavicle including sternoclavicular and acromioclavicular joints are normal. There is a comminuted minimally displaced fracture of the proximal humeral metaphysis. IMPRESSION: Normal clavicle. Comminuted fracture of the proximal humeral metaphysis. <Electronically signed by Vic Calzada > 05/19/21 [id number]
--- NOTE | 2021-05-19 11:48 | REP ---
INDICATION: UNSP FX UPPER END OF R HUMERUS. COMPARISON: 05/12/2021 TECHNIQUE: AP and lateral views left wrist FINDINGS: Patient is status post open reduction and fixation for distal radial metaphyseal fracture. Continued evidence for minimally displaced/angulated fracture of the distal ulnar metaphysis appears essentially unchanged. Carpal bones are intact and normal. IMPRESSION: Status post open reduction and fixation for distal radial fracture. Continued evidence for mildly angulated fracture of the distal ulnar metaphysis. <Electronically signed by Vic Calzada > 05/19/21 [id number]
== END ==
LOC: M SOG 11:13
PROVIDERS: ATTEND Orthopaedic Surgery Sports Medicine
DX: Z48.89 Encounter for other specified surgical aftercare (principal); S42.201D Unspecified fracture of upper end of right humerus, subsequent encounter for fracture with routine healing; W18.30XD Fall on same level, unspecified, subsequent encounter; Y92.009 Unspecified place in unspecified non-institutional (private) residence as the place of occurrence of the external cause

== ENCOUNTER → 2021-05-26 | Outpatient (CLI) | payer OTHER ==
--- NOTE | 2021-05-28 07:55 | REP ---
INDICATION: LT SHOULDER SURGICAL AFTERCARE AND LT WRIST FX. COMPARISON: 05/19/2021 TECHNIQUE: AP and lateral views of the left wrist FINDINGS: There is a stable comminuted angulated fracture of the distal ulnar diaphysis along with possible old ulnar styloid fracture. Patient is also noted to be status post open reduction and satisfactory fixation at the distal radial metaphysis with callus formation suggesting early healing. IMPRESSION: Findings related to prior trauma and associated fixation as described above. <Electronically signed by Vic Calzada > 05/28/21 [id number]
--- NOTE | 2021-05-28 07:56 | REP ---
INDICATION: LT SHOULDER SURGICAL AFTERCARE AND LT WRIST FX. COMPARISON: 05/19/2021 TECHNIQUE: Neutral and Y-view of the left shoulder FINDINGS: Stable comminuted mildly displaced fracture through the proximal humeral metadiaphysis is unchanged in appearance and positioning. IMPRESSION: Comminuted mildly displaced fracture through the proximal humeral metadiaphysis. <Electronically signed by Vic Calzada > 05/28/21 [id number]
== END ==
LOC: M SOG 10:58
PROVIDERS: ATTEND Orthopaedic Surgery Sports Medicine
DX: Z48.89 Encounter for other specified surgical aftercare (principal); S52.502D Unspecified fracture of the lower end of left radius, subsequent encounter for closed fracture with routine healing; W18.30XD Fall on same level, unspecified, subsequent encounter; Y92.009 Unspecified place in unspecified non-institutional (private) residence as the place of occurrence of the external cause

== ENCOUNTER → 2021-06-27 | Outpatient (CLI) | payer OTHER ==
--- NOTE | 2021-06-27 10:24 | REP ---
INDICATION: LT HUMERUS AND LT WRIST FX. COMPARISON: 05/26/2021 TECHNIQUE: Neutral, internal rotation, external rotation, and Y-view left shoulder FINDINGS: Comminuted angulated displaced fracture through the proximal humeral metaphysis is unchanged in appearance. IMPRESSION: Comminuted proximal humeral metaphyseal fracture essentially unchanged. <Electronically signed by Vic Calzada > 06/27/21 [id number]
--- NOTE | 2021-06-27 10:28 | REP ---
INDICATION: LT HUMERUS AND LT WRIST FX. COMPARISON: 05/26/2021 TECHNIQUE: AP, lateral, oblique views of the left wrist FINDINGS: Evidence for prior orthopedic fixation of the distal radius along with comminuted fractures of the distal radius and ulna appear unchanged subtle adjacent callus formation suggests healing process. IMPRESSION: Comminuted angulated fractures of the distal radius and ulna unchanged in appearance. Evidence for early healing <Electronically signed by Vic Calzada > 06/27/21 [id number]
== END ==
LOC: M SOG 09:02
PROVIDERS: ATTEND Orthopaedic Surgery Sports Medicine
DX: S42.292D Other displaced fracture of upper end of left humerus, subsequent encounter for fracture with routine healing (principal); S52.502D Unspecified fracture of the lower end of left radius, subsequent encounter for closed fracture with routine healing; W18.30XD Fall on same level, unspecified, subsequent encounter; Y92.009 Unspecified place in unspecified non-institutional (private) residence as the place of occurrence of the external cause

== ENCOUNTER → 2021-07-21 | Outpatient (CLI) | payer OTHER ==
[~2021-07-21] MED LIST changes: -OMEP-221 PO; +OMEP40CA5 PO
== END ==
LOC: M LABSMTC 09:04
PROVIDERS: ATTEND Anesthesiology
DX: Z01.818 Encounter for other preprocedural examination (principal); Z11.52 Encounter for screening for COVID-19

== ENCOUNTER 2021-07-26 10:19 | Day surgery (SDC) | payer OTHER ==
[~2021-07-26] VITALS: Ht 182.9 cm; Wt 142.2 kg
[~2021-07-26 10:19] MED LIST changes: +LR 1,000 ML IV ONE; +MIDAZOLAM INJ 2MG/2ML VIAL (J2250 PER 1MG) IV PRN; +ceFAZolin SOD 2 GM in IV 1 EA IV ONE
[2021-07-26] MEDS ORDERED: LIDOCAINE 2% 100MG/5ML SDV (FOR ANES.) As Ordered ONE (10:54)
[2021-07-26] MEDS ORDERED: ONDANSETRON 4MG/2ML VIAL As Ordered ONE (10:54)
[2021-07-26] MEDS ORDERED: dexameTHASONE 4 MG/ML 1ML VIAL (J1100 PER 1MG) As Ordered ONE (10:54)
[2021-07-26] MEDS ORDERED: ACETAMINOPHEN 1000MG 100ML IV BTL (OFIRMEV) (J0131 PER 10MG) As Ordered ONE (10:54)
[2021-07-26] MEDS ORDERED: propofoL 200 MG/20 ML VIAL As Ordered ONE (10:54)
[2021-07-26] MEDS ORDERED: KETOROLAC 60MG 2ML VIAL As Ordered ONE (10:54)
[2021-07-26] MEDS ORDERED: ROCURONIUM BROMIDE 50 MG/5 ML VIAL As Ordered ONE ×2 (10:54→16:22)
[2021-07-26] MEDS ORDERED: MIDAZOLAM INJ 2MG/2ML VIAL (J2250 PER 1MG) As Ordered ONE (10:55)
[2021-07-26] MEDS ORDERED: fentaNYL 100 MCG/2 ML INJECTION As Ordered ONE (10:55)
[2021-07-26] MEDS ORDERED: SUGAMMADEX SODIUM 500 MG/5 ML VIAL (BRIDION) As Ordered ONE (11:03)
[2021-07-26 11:10] LABS: BASO % 0.6 % (0.0-1.0); EOS # 0.3 10^3/uL (0.0-0.5); EOS % 4.3 % (0.0-3.0); HEMATOCRIT 42.5 % (42.0-52.0); HEMOGLOBIN 14.2 g/dl (13.5-17.5); LYMPH # 1.7 10^3/uL (1.5-5.0); LYMPH % 27.1 % (24.0-44.0); MEAN CORPUSCULAR HEMOGLOBIN 30.6 pg (27.0-33.0); MEAN CORPUSCULAR HGB CONC 33.4 g/dl (32.0-36.5); MEAN CORPUSCULAR VOLUME 91.6 fl (80.0-96.0); MONO # 0.6 10^3/uL (0.0-0.8); MONO % 9.3 % (2.0-8.0); NEUTROPHILS # 3.6 10^3/uL (1.5-8.5); NEUTROPHILS % 58.4 % (36.0-66.0); PLATELET COUNT, AUTOMATED 229 10^3/uL (150-450); RED BLOOD COUNT 4.64 10^6/uL (4.30-6.10); WHITE BLOOD COUNT 6.2 10^3/uL (4.0-10.0)
[2021-07-26 11:33] LABS: BLOOD UREA NITROGEN 17 MG/DL (7-18); CALCIUM LEVEL 8.7 MG/DL (8.5-10.1); CARBON DIOXIDE LEVEL 27 MEQ/L (21-32); CHLORIDE LEVEL 111 MEQ/L (98-107); CREATININE FOR GFR 0.82 MG/DL (0.70-1.30); GLOMERULAR FILTRATION RATE > 60.0 (>56); GLUCOSE, FASTING 160 MG/DL (70-100); POTASSIUM SERUM 3.7 MEQ/L (3.5-5.1); SODIUM LEVEL 143 MEQ/L (136-145)
[2021-07-26] MEDS ORDERED: dexameTHASONE 10MG/1ML VIAL PRES.FREE (J1100 PER 1MG) XX ONE (11:35)
[2021-07-26] MEDS ORDERED: LIDOCAINE 1% MDV 20ML VIAL XX ONE (11:35)
[2021-07-26] MEDS ORDERED: ROPIvacaine 0.5% 30ML INJECTION (J2795 PER 1MG) XX ONE (11:35)
[2021-07-26] MEDS ORDERED: EPINEPHrine INJ 1 MG/ML 1ML AMP XX ONE (11:35)
[2021-07-26] MEDS ORDERED: METOCLOPRAMIDE INJ 10MG/2ML VIAL (J2765 PER 1) As Ordered ONE (11:44)
[2021-07-26] MEDS ORDERED: BUPIVACAINE HCL 0.25% 10ML VIAL As Ordered ONE (11:58)
[2021-07-26] MEDS ORDERED: BUPIVACAINE LIPOSOME/PF 1.3% 20ML VIAL (13.3MG/ML)(EXPAREL)(C9290 PER1MG) As Ordered ONE (11:58)
[2021-07-26] MEDS ORDERED: bisoproloL fumarate 5 MG TAB PO ONE (12:00)
[2021-07-26] MEDS: fentaNYL 100 MCG/2 ML INJECTION IV PRN ×2 (12:17→12:40)
[2021-07-26] MEDS ORDERED: TRANEXAMIC ACID 100 MG/ML 10ML VIAL As Ordered ONE (13:48)
[2021-07-26] MEDS ORDERED: ePHEDrine SULFATE 25 MG/5 ML(5MG/ML) SYRINGE As Ordered ONE (14:06)
[2021-07-26] MEDS ORDERED: PHENYLEPHRINE 10MG/ML 1ML VIAL (J2370 PER 1) As Ordered ONE (14:23)
[2021-07-26] MEDS ORDERED: PERCOCET 5MG/325MG TAB PO PRN (17:50)
[2021-07-26] MEDS ORDERED: MORPHINE 2 MG/ML 1ML VIAL (J2270) IV PRN (17:50)
[2021-07-26] MEDS ORDERED: LR 1,000 ML IV SCH ×2 (17:50→18:40)
[2021-07-26] MEDS ORDERED: ACETAMINOPHEN TAB 650MG DOSE (2X325MG) PO PRN (17:50)
[2021-07-26] MEDS ORDERED: ONDANSETRON 4MG/2ML VIAL IV PRN ×2 (17:50→18:40)
[2021-07-26] MEDS ORDERED: fentaNYL 100 MCG/2 ML INJECTION IV PRN (18:40)
[2021-07-26 18:45] VITALS: BP 168/92
== END 2021-07-26 19:14 | disposition home or self-care (01) ==
LOC: M SDC 10:19
PROVIDERS: ATTEND Orthopaedic Surgery Sports Medicine
DX: S42.292A Other displaced fracture of upper end of left humerus, initial encounter for closed fracture (principal); X58.XXXA Exposure to other specified factors, initial encounter; Y92.89 Other specified places as the place of occurrence of the external cause; I10 Essential (primary) hypertension; E78.00 Pure hypercholesterolemia, unspecified; E11.9 Type 2 diabetes mellitus without complications; K21.9 Gastro-esophageal reflux disease without esophagitis; R06.02 Shortness of breath; M51.9 Unspecified thoracic, thoracolumbar and lumbosacral intervertebral disc disorder; M50.20 Other cervical disc displacement, unspecified cervical region; G43.909 Migraine, unspecified, not intractable, without status migrainosus; J45.909 Unspecified asthma, uncomplicated; J44.9 Chronic obstructive pulmonary disease, unspecified; G47.30 Sleep apnea, unspecified; R06.83 Snoring; Z88.5 Allergy status to narcotic agent; Z79.899 Other long term (current) drug therapy; Z79.84 Long term (current) use of oral hypoglycemic drugs; Z79.51 Long term (current) use of inhaled steroids
CPT/HCPCS: 23405; 23615; 36415; 64415; 76000; 80048; 85025; 93005; C1713; C9290; J0131; J0690; J1100; J1885; J2250; J2370; J2405; J2765; J3010

== ENCOUNTER → 2021-08-03 | Outpatient (CLI) | payer OTHER ==
[~2021-08-03] MED LIST changes: -LR 1,000 ML IV ONE; -MIDAZOLAM INJ 2MG/2ML VIAL (J2250 PER 1MG) IV PRN; +OMEP-221 PO; -OMEP40CA5 PO; -ceFAZolin SOD 2 GM in IV 1 EA IV ONE
--- NOTE | 2021-08-03 11:27 | REP ---
INDICATION: ORTHOPEDIC AFTERCARE. COMPARISON: 08/27/2020 a pre operative exam TECHNIQUE: Six views in total FINDINGS: The previously described comminuted proximal humeral fracture has been openly reduced and internally fixed. There is evidence of callus formation seen surrounding some of the fracture fragments consistent with healing. The alignment of the fracture has improved since the preoperative exam. IMPRESSION: Healing fracture as described above. <Electronically signed by Mikhail Kaufman > 08/03/21 [id number]
== END ==
LOC: M SOG 10:43
PROVIDERS: ATTEND Orthopaedic Surgery Sports Medicine
DX: Z47.89 Encounter for other orthopedic aftercare (principal)

== ENCOUNTER 2021-08-29 11:14 | Outpatient (RCR) | payer OTHER ==
[~2021-08-29 11:14] MED LIST changes: -OMEP-221 PO; +OMEP40CA5 PO
== END 2021-09-04 ==
LOC: M PT 11:14
PROVIDERS: ATTEND Orthopaedic Surgery Sports Medicine
DX: Z47.89 Encounter for other orthopedic aftercare (principal); S42.292D Other displaced fracture of upper end of left humerus, subsequent encounter for fracture with routine healing

== ENCOUNTER → 2021-09-04 | Outpatient (CLI) | payer OTHER | LOC: M SOG 08:18 | PROVIDERS: ATTEND Orthopaedic Surgery Sports Medicine | DX: S42.292D Other displaced fracture of upper end of left humerus, subsequent encounter for fracture with routine healing (principal); Z47.89 Encounter for other orthopedic aftercare; W18.30XD Fall on same level, unspecified, subsequent encounter; Y92.009 Unspecified place in unspecified non-institutional (private) residence as the place of occurrence of the external cause ==

== ENCOUNTER 2021-09-12 11:25 | Outpatient (RCR) | payer OTHER | END 2021-10-02 | LOC: M PT 11:25 | PROVIDERS: ATTEND Orthopaedic Surgery Sports Medicine | DX: Z47.89 Encounter for other orthopedic aftercare (principal) ==

== ENCOUNTER → 2021-10-27 | Outpatient (CLI) | payer OTHER | LOC: M SOG 10:00 | PROVIDERS: ATTEND Orthopaedic Surgery Sports Medicine | DX: S42.292D Other displaced fracture of upper end of left humerus, subsequent encounter for fracture with routine healing (principal); S52.502D Unspecified fracture of the lower end of left radius, subsequent encounter for closed fracture with routine healing; W18.30XD Fall on same level, unspecified, subsequent encounter ==

== ENCOUNTER → 2022-01-09 | Outpatient (CLI) | payer MEDICARE | LOC: M SOG 14:55 | PROVIDERS: ATTEND Physician Assistant | DX: S42.292D Other displaced fracture of upper end of left humerus, subsequent encounter for fracture with routine healing (principal); S52.502D Unspecified fracture of the lower end of left radius, subsequent encounter for closed fracture with routine healing ==

== ENCOUNTER → 2022-05-24 | Outpatient (CLI) | payer MEDICARE | LOC: M SLEEP 20:00 | PROVIDERS: ATTEND Internal Medicine | DX: G47.33 Obstructive sleep apnea (adult) (pediatric) (principal) ==

== ENCOUNTER → 2024-11-18 | Outpatient (CLI) | payer OTHER ==
[~2024-11-18] MED LIST changes: +LORA-1041 PO; -LORA-674 PO; -ROPI1TAB3 PO; +ROPI1TAB73 PO; +TOPI-14 PO; -TOPI200T7 PO
== END ==
LOC: M SLEEP 20:00
PROVIDERS: ATTEND Internal Medicine
DX: R06.83 Snoring (principal)